=== PATIENT | male | born 1995 | race Caucasian/White ===

== ENCOUNTER → 2019-11-13 | Outpatient (CLI) | payer OTHER ==
--- NOTE | ~2019-11-13 | OP ---
[address] [address] OPERATIVE REPORT Name: MILKA CRUZ Room: [facility]#: [id number] Admission: 11/13/19 Attend Phys: Kyara White DO Discharge: Date of : 89 Report #: [id number] THIS REPORT FOR: //name// cc: NAEEM Gillespie family physician/PCP NAEEM Gillespie family physician/PCP ~ CC: Kyara White [facility] physician/PCP DATE OF SERVICE: 11/16/[address] White. PREOPERATIVE DIAGNOSIS: Left foot retained painful hardware, calcaneus, second toe. POSTOPERATIVE DIAGNOSIS: Left foot retained, painful hardware, calcaneus, second toe. PROCEDURE PERFORMED: Removal of hardware in the left foot, calcaneus and second toe. OPERATIVE SURGEON: Kyara White DO COMPUTER SYSTEMS SECURITY ANALYST: Vee Ha DO TOURNIQUET TIME: 80 minutes. ANTIBIOTICS: 2 g of Ancef. IMPLANTS USED: None. BLOOD LOSS: Minimal. COMPLICATIONS: None. REASON FOR PROCEDURE: This is a pleasant 24-year-old male who was followed closely in clinic for his left foot pain. He had pain around his calcaneal plate and screws as well as second toe. He had a previous calcaneal fracture in 2016. He underwent open reduction and internal fixation by Dr. Grewal in 2016, who also subsequently did a left second toe DIP arthrodesis. He has pain when he is a wrestling and pain whenever his foot gets stepped on. He states that he would like this to remove. We discussed risks, benefits and alternatives to surgery, risks including infection, neurovascular injury, DVT, PE, breakage of hardware, fracture around implant and other inherent risks of anesthesia. The patient understood these risks and agreed to proceed. [address] [address] OPERATIVE REPORT Name: ANTHONYMILKA ZHANG Room: [facility].#: [id number] Admission: 11/13/19 Attend Phys: Kyara White DO Discharge: Date of : 89 Report #: [id number] DESCRIPTION OF PROCEDURE: The patient was brought back to the operative suite. A timeout was performed indicating a correct patient, site of surgery, date of and all allergies. Everybody in the room was in agreement. The patient was given 2 grams of Ancef. He was placed in the lateral position utilizing a beanbag. He was draped and prepped in the standard sterile fashion. His old extensile lateral calcaneal approach was utilized, taken down to the bone. Calcaneal plate was visualized. This was then debrided of all bone utilizing an osteotome and rongeur. The screws were then removed utilizing the correct size screwdriver, starting with the proximal screws and then working distally on the plate. Due to the stripping of the screw, 1 screw head was broken off and was unable to be removed. This was tamped down, so the screw was left prominent. Next, attention was turned to the DIP arthrodesis. The old incision was used transversely across the DIP joint. The Smart Toe arthrodesis was then visualized. A curette, rongeur and needle drivers were then utilized to remove the arthrodesis. The patient's incisions were then thoroughly irrigated with normal saline, 20 mL of local were injected around the calcaneal incision as well as around the second toe. His incisions were then closed with 2-0 Vicryl and 3-0 nylon. He was placed in soft dressings. Postoperative plan is for him to discontinue from PACU once stable. He was given a prescription of Moran for pain management. He will follow up in one week. He was given instructions to call the office for any questions or concerns. By: [id number] White DO /nt
== END ==
LOC: M.LAB 09:28
PROVIDERS: ATTEND Orthopaedic Surgery
DX: Z01.818 Encounter for other preprocedural examination (principal); Z11.59 Encounter for screening for other viral diseases; Z96.9 Presence of functional implant, unspecified